=== PATIENT | female | born 1955 | race American Indian/Alaskan Native ===

== ENCOUNTER 2018-04-07 22:05 | Emergency (ER) | payer BC, OTHER ==
[2018-04-07 22:06] VITALS: BMI 39.4
[2018-04-07 22:27] VITALS: RESP 18
[2018-04-08 00:02] LABS: ALB/GLOB RATIO 1.3 (1.1-1.8); ALBUMIN 4.8 g/dL (3.0-4.8); ALT/SGPT 18 U/L (7-56); AST/SGOT 29 U/L (14-36); BASO # 0.02 K/mm3 (0.0-2.0); BASO % 0.2 % (0.0-3.0); BLOOD UREA NITROGEN 7 mg/dL (7-21); CALCIUM 9.4 mg/dL (8.4-10.5); EOS # 0.4 (0.0-0.7); GFR NON-AFRICAN AMERICAN > 60; HEMOGLOBIN 13.9 g/dL (12.0-16.0); LYMPH % 34.7 % (22.0-35.0); MEAN CELL VOLUME 93.3 fl (80.0-105.0); MEAN CORPUSCULAR HEMOGLOBIN 30.1 pg (25.0-35.0); MEAN CORPUSCULAR HGB CONC 32.3 g/dl (31.0-37.0); MEAN PLATELET VOLUME 9.1 fl (7.0-11.0); MONO # 0.6 (0.1-0.6); MONO % 4.9 % (1.0-6.0); RBC 4.62 10^6/uL (3.5-6.1); RED CELL DISTRIBUTION WIDTH 13.6 % (11.5-14.5); WHITE BLOOD COUNT 11.6 10^3/uL (4.5-11.0)
--- NOTE | 2018-04-08 00:12 | ED PDOC ---
Arrival/HPI - General Chief Complaint: High Blood Pressure Time Seen by Provider: 04/07/18 22:31 - History of Present Illness Narrative History of Present Illness (Text): 04/08/18 00:11 62-year-old female with past medical history of hypertension, presents to the emergency room for elevated blood pressure. Patient states that she checks her blood pressure daily and noticed this evening that it was elevated. States that she is compliant with her blood pressure medication losartan, however missed one dose 2 days ago. Otherwise states that she feels well. Denies any headache, dizziness, chest pain, shortness of breath, palpitations, nausea, vomiting. Patient has no other complaints. PMD Adele Past Medical History - Infectious Disease Hx of Infectious Diseases: None - Cardiac Hx Hypertension: Yes - Psychiatric Hx Substance Use: No - Anesthesia Hx Anesthesia: No Family/Social History Family/Social History: No Known Family HX Smoking Status: Never Smoked Hx Alcohol Use: Yes Hx Substance Use: No Allergies/Home Meds Allergies/Adverse Reactions: Allergies avocado Allergy (Unverified 04/07/18 22:13) VOMITING Home Medications: Home Meds Medication Instructions Recorded Confirmed Losartan [Cozaar] 100 mg PO DAILY 08/18/16 04/07/18 Review of Systems - Review of Systems Constitutional: absent: Fatigue, Fevers Respiratory: absent: SOB, Cough Cardiovascular: absent: Chest Pain, Palpitations Gastrointestinal: absent: Abdominal Pain, Nausea, Vomiting Musculoskeletal: Arthralgias. absent: Back Pain, Neck Pain Skin: absent: Rash, Pruritis, Skin Lesions Neurological: absent: Headache, Dizziness Physical Exam Vital Signs Temp Pulse Resp BP Pulse Ox 04/07/18 23:37 87 198/87 H 04/07/18 22:30 189/85 H 04/07/18 22:14 98 F 75 18 213/95 H 97 Temperature: Afebrile Blood Pressure: Hypertensive Pulse: Regular Respiratory Rate: Normal Appearance: Positive for: Well-Appearing, Non-Toxic, Comfortable Pain Distress: None Mental Status: Positive for: Alert and Oriented X 3 - Systems Exam Head: Present: Atraumatic, Normocephalic Pupils: Present: PERRL Extroacular Muscles: Present: EOMI Conjunctiva: Present: Normal Mouth: Present: Moist Mucous Membranes Neck: Present: Normal Range of Motion Respiratory/Chest: Present: Clear to Auscultation, Good Air Exchange. No: Respiratory Distress, Accessory Muscle Use Cardiovascular: Present: Regular Rate and Rhythm, Normal S1, S2. No: Murmurs Abdomen: No: Tenderness, Distention, Peritoneal Signs Back: Present: Normal Inspection Upper Extremity: Present: Normal Inspection. No: Cyanosis, Edema Lower Extremity: Present: Normal Inspection. No: Edema Neurological: Present: GCS=15, CN II-XII Intact, Speech Normal, Motor Func Grossly Intact, Normal Sensory Function Skin: Present: Warm, Dry, Normal Color. No: Rashes Psychiatric: Present: Alert, Oriented x 3, Normal Insight, Normal Concentration Medical Decision Making ED Course and Treatment: 04/08/18 00:12 Plan: -- Labs -- IV -- Urinalysis -- EKG -- CXR -- Clonidine PO -- Reassess and disposition -- environmental monitoring specialist EKG: NSR at 62 bpm, (-) acute ST changes, as read by MATI. CXR : NAD, as read by MATI Labs reviewed and wnl. On reevaluation, patient remains awake alert and oriented 3 in no acute distress, reports no headache, no dizziness, no chest pain or SOB. Results d/w the patient. Repeat BP 150/76. Advised to follow up with primary care physician in the morning without fail. Return to the emergency room at any time for any new or worsening symptoms. Patient states she fully agrees with and understands discharge instructions. States that she agrees with the plan and disposition. Verbalized and repeated discharge instructions and plan. I have given the patient opportunity to ask any additional questions. - Lab Interpretations Lab Results: Total Bilirubin 0.2 mg/dL (0.2-1.3) 04/07/18 23:33 AST 29 U/L (14-36) 04/07/18 23:33 ALT 18 U/L (7-56) 04/07/18 23:33 Alkaline Phosphatase 152 U/L (38-126) H 04/07/18 23:33 Total Protein 8.4 g/dL (5.8-8.3) H 04/07/18 23:33 Albumin 4.8 g/dL (3.0-4.8) 04/07/18 23:33 Globulin 3.6 gm/dL 04/07/18 23:33 Albumin/Globulin Ratio 1.3 (1.1-1.8) 04/07/18 23:33 - RAD Interpretation Radiology Orders: 04/07/18 23:02 CHEST PORTABLE [RAD] Stat - Medication Orders Current Medication Orders: Discontinued Medications Clonidine HCl (Catapres) 0.1 mg PO STAT STA Stop: 04/07/18 23:04 Last Admin: 04/07/18 23:37 Dose: 0.1 mg MAR Pulse and Blood Pressure Document 04/07/18 23:37 HN (Rec: 04/07/18 23:40 HN [facility] [id number]) Pulse Pulse Rate (60-90) 87 Blood Pressure Blood Pressure (100/60-150/90) 198/87 - PA / BACK SEAM STITCHER / Resident Statement MD/DO has reviewed & agrees with the documentation as recorded. Disposition/Present on Arrival - Present on Arrival Any Indicators Present on Arrival: No History of DVT/PE: No History of Uncontrolled Diabetes: No Urinary Catheter: No History of Decub. Ulcer: No History Surgical Site Infection Following: None - Disposition Have Diagnosis and Disposition been Completed?: Yes Diagnosis: Hypertension Disposition: HOME/ ROUTINE Disposition Time: 01:00 Patient Plan: Discharge Patient Problems: Current Active Problems Problem Status Onset Hypertension Acute Condition: STABLE Discharge Instructions (ExitCare): DASH Diet, High Blood Pressure (DC), Controlling Your Blood Pressure Through Lifestyle Additional Instructions: Thank you for letting us take care of you today. You were treated for hypertension. The emergency medical care you received today was directed at your acute symptoms. Return to the Emergency Department if your symptoms worsen, do not improve, or if you have any other problems. Please contact your doctor tomorrow for re-evaluation and follow up. Bring any paperwork you were given at discharge with you along with any medications you are taking to your follow up visit. Our treatment cannot replace ongoing medical care by a primary care provider (PCP) outside of the emergency department. Thank you for allowing the [facility] team to be part of your care today. If you had an X-Ray : A Radiologist will review the ED reading if any change in treatment is needed we will contact you. Forms: [employer] ([place]), WORK NOTE
[2018-04-08 00:13] LABS: TROPONIN I < 0.01 ng/mL
[2018-04-08 00:27] LABS: URINE BILIRUBIN NEGATIVE (NEGATIVE); URINE BLOOD SMALL (NEGATIVE); URINE GLUCOSE (UA) NEGATIVE (NEGATIVE); URINE LEUKOCYTE ESTERASE TRACE Leu/uL (NEGATIVE); URINE PROTEIN NEGATIVE mg/dL (<30 mg/dL); URINE UROBILINOGEN 0.2 E.U./dL (<1 E.U./dL)
[2018-04-08 00:28] LABS: URINE APPEARANCE CLEAR (CLEAR); URINE COLOR YELLOW (YELLOW)
[2018-04-08 00:30] LABS: INR 0.96; PARTIAL THROMBOPLASTIN TIME 38.1 Seconds (26.9-38.3); PROTHROMBIN TIME 10.7 SECONDS (9.4-12.5)
[2018-04-08 00:42] LABS: URINE BACTERIA RARE /hpf; URINE WBC 0 - 2 /hpf (0-6)
[2018-04-08 01:20] VITALS: BP 152/73; PULSE 69; TEMP 98.3; O2SAT 98
--- NOTE | 2018-04-08 09:15 | CARD ---
APPROVED REPORT Date of service: 04/07/2018 EKG Measurement Heart [id number] TN 152P61 [id number] <Conclusion> Normal sinus rhythm Normal ECG
--- NOTE | 2018-04-08 10:18 | RAD ---
Date of service: 04/07/2018 HISTORY: high bp COMPARISON: No prior. FINDINGS: LUNGS: No active pulmonary disease. PLEURA: No significant pleural effusion identified, no pneumothorax apparent. CARDIOVASCULAR: No aortic atherosclerotic calcification present. Normal cardiac size. No pulmonary vascular congestion. OSSEOUS STRUCTURES: No significant abnormalities. VISUALIZED UPPER ABDOMEN: Normal. OTHER FINDINGS: None. IMPRESSION: Suboptimal portable study. No evidence of acute pulmonary disease.
== END 2018-04-08 01:19 | disposition home or self-care (01) ==
LOC: ED 22:05
DX: I10 Essential (primary) hypertension (principal)

== ENCOUNTER 2018-04-21 12:36 | Observation (INO) | payer BC, OTHER ==
[2018-04-21 12:36] VITALS: BMI 39.4
[2018-04-21 14:02] LABS: BASO # 0.03 K/mm3 (0.0-2.0); BASO % 0.2 % (0.0-3.0); EOS # 0.3 (0.0-0.7); EOS % 2.6 % (1.5-5.0); HEMOGLOBIN 13.6 g/dL (12.0-16.0); LYMPH # 4.9 (1.2-3.4); LYMPH % 38.3 % (22.0-35.0); MEAN CELL VOLUME 92.9 fl (80.0-105.0); MEAN CORPUSCULAR HEMOGLOBIN 30.1 pg (25.0-35.0); MEAN CORPUSCULAR HGB CONC 32.4 g/dl (31.0-37.0); MEAN PLATELET VOLUME 9.3 fl (7.0-11.0); MONO # 0.5 (0.1-0.6); RBC 4.52 10^6/uL (3.5-6.1); RED CELL DISTRIBUTION WIDTH 13.6 % (11.5-14.5); WHITE BLOOD COUNT 12.7 10^3/uL (4.5-11.0)
[2018-04-21 14:12] LABS: LIPASE 84 U/L (23-300)
[2018-04-21 14:15] LABS: INR 1.01; PARTIAL THROMBOPLASTIN TIME 39.4 Seconds (26.9-38.3); PROTHROMBIN TIME 11.2 SECONDS (9.4-12.5)
[2018-04-21 14:17] LABS: ALB/GLOB RATIO 1.3 (1.1-1.8); ALBUMIN 4.9 g/dL (3.0-4.8); ALT/SGPT 12 U/L (7-56); AST/SGOT 23 U/L (14-36); BLOOD UREA NITROGEN 16 mg/dL (7-21); GFR NON-AFRICAN AMERICAN > 60
[2018-04-21 14:18] LABS: URINE BILIRUBIN NEGATIVE (NEGATIVE); URINE BLOOD NEGATIVE (NEGATIVE); URINE GLUCOSE (UA) NEGATIVE (NEGATIVE); URINE LEUKOCYTE ESTERASE NEGATIVE Leu/uL (NEGATIVE); URINE PROTEIN NEGATIVE mg/dL (<30 mg/dL); URINE UROBILINOGEN 0.2 E.U./dL (<1 E.U./dL)
[2018-04-21 14:19] LABS: URINE APPEARANCE CLEAR (CLEAR); URINE COLOR YELLOW (YELLOW)
[2018-04-21] MEDS ORDERED: Oxycodone/Acetaminophen 5/325 mg Tab PO STA (14:21)
[2018-04-21 14:22] LABS: TROPONIN I < 0.01 ng/mL
--- NOTE | 2018-04-21 14:30 | RAD ---
Date of service: 04/21/2018 HISTORY: chest pain COMPARISON: 04/07/2018 FINDINGS: LUNGS: No active pulmonary disease. PLEURA: No significant pleural effusion identified, no pneumothorax apparent. CARDIOVASCULAR: No aortic atherosclerotic calcification present. Normal cardiac size. No pulmonary vascular congestion. OSSEOUS STRUCTURES: No significant abnormalities. VISUALIZED UPPER ABDOMEN: Normal. OTHER FINDINGS: None. IMPRESSION: No active disease.
--- NOTE | 2018-04-21 14:53 | CT ---
Date of service: 04/21/2018 PROCEDURE: CT HEAD WITHOUT CONTRAST. HISTORY: fall COMPARISON: None available. TECHNIQUE: Axial computed tomography images were obtained through the head/brain without intravenous contrast. Radiation dose: Total exam DLP = 911.29 mGy-cm. This CT exam was performed using one or more of the following dose reduction techniques: Automated exposure control, adjustment of the mA and/or kV according to patient size, and/or use of iterative reconstruction technique. FINDINGS: HEMORRHAGE: No intracranial hemorrhage. BRAIN: No mass effect or edema. No atrophy or chronic microvascular ischemic changes. VENTRICLES: Unremarkable. No hydrocephalus. CALVARIUM: Unremarkable. PARANASAL SINUSES: Unremarkable as visualized. No significant inflammatory changes. MASTOID AIR CELLS: Unremarkable as visualized. No inflammatory changes. OTHER FINDINGS: None. IMPRESSION: No acute intracranial findings
--- NOTE | 2018-04-21 15:32 | RAD ---
Date of service: 04/21/2018 PROCEDURE: Pelvis and right hip HISTORY: right hip pain COMPARISON: TECHNIQUE: Three views FINDINGS: There are no significant degenerative changes. No evidence of fracture. Mild hypertrophic changes are seen in the symphysis pubis IMPRESSION: Negative study
--- NOTE | 2018-04-21 15:33 | RAD ---
Date of service: 04/21/2018 PROCEDURE: Right Wrist Radiographs. HISTORY: wrist pain s/p fall COMPARISON: None. FINDINGS: BONES: Normal. No fracture. JOINTS: Normal. No dislocation. SOFT TISSUES: Normal. OTHER FINDINGS: None. IMPRESSION: Normal right wrist radiographs.
--- NOTE | 2018-04-21 15:33 | RAD ---
Date of service: 04/21/2018 PROCEDURE: Radiographs of the Chest and Right Ribs. HISTORY: right lateral and anterior rib pain s/p fall COMPARISON: None available. TECHNIQUE: Frontal radiograph of the chest and multiple oblique radiographs of the right ribs were obtained. FINDINGS: RIGHT RIBS: No fracture or focal lesion visualized. LUNGS: Clear. PLEURA: No pneumothorax or pleural fluid. CARDIOVASCULAR: Normal cardiac size. No pulmonary vascular congestion. No aortic atherosclerotic calcification present OTHER FINDINGS: None. IMPRESSION: Unremarkable radiographs of the chest and right ribs. No right rib fracture.
--- NOTE | 2018-04-21 16:09 | CARD ---
APPROVED REPORT Date of service: 04/21/2018 EKG Measurement Heart [id number] CT [id number] <Conclusion> Normal sinus rhythm Normal ECG
--- NOTE | 2018-04-21 17:16 | ED PDOC ---
Arrival/HPI - General Chief Complaint: Trauma Time Seen by Provider: 04/21/18 13:11 Historian: Patient - History of Present Illness Narrative History of Present Illness (Text): 04/21/18 17:27 62-year-old female with a history of hypertension presents today with anterior chest pain, right hip pain, right wrist pain, and right lateral rib pain status post slip and fall. Patient states she slipped and fell landing on her right si de. Patient states she thinks she may have broken her fall with her right hand/wrist. Patient is unsure if she hit her head. She denies neck pain. Patient denies numbness weakness or tingling in the extremity. She is complaining of right hip pain. She denies abdominal pain. 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 Patient states she then developed pain to the right lateral ribs. pt c/o occasional sob. no n/v/d/c. Past Medical History - Provider Review Nursing Documentation Reviewed: Yes - Travel History Have you recently traveled outside [place] w/in the past 3 mons?: No - Infectious Disease Hx of Infectious Diseases: None - Cardiac Hx Hypertension: Yes - Psychiatric Hx Substance Use: No - Anesthesia Hx Anesthesia: No Hx Anesthesia Reactions: No Hx Malignant Hyperthermia: No Family/Social History - Physician Review Nursing Documentation Reviewed: Yes Family/Social History: Unknown Family HX Smoking Status: Never Smoked Hx Alcohol Use: Yes Hx Substance Use: No Allergies/Home Meds Allergies/Adverse Reactions: Allergies avocado Allergy (Unverified 04/21/18 15:21) VOMITING Pt also reports "breaking out." Home Medications: Home Meds Medication Instructions Recorded Confirmed Losartan [Cozaar] 100 mg PO DAILY 08/18/16 04/21/18 amLODIPine [Norvasc] 5 mg PO DAILY 04/21/18 04/21/18 Review of Systems - Review of Systems Constitutional: absent: Fatigue, Fevers ENT: absent: Sore Throat, Sinus Congestion Respiratory: absent: Cough Cardiovascular: Chest Pain. absent: Palpitations Gastrointestinal: absent: Abdominal Pain, Constipation, Diarrhea, Nausea, Vomiting Musculoskeletal: Arthralgias. absent: Back Pain, Neck Pain Skin: absent: Rash, Pruritis Neurological: absent: Headache Physical Exam Vital Signs Temp Pulse Resp BP Pulse Ox 04/21/18 16:30 98.1 F 68 18 158/79 H 100 04/21/18 13:11 98.2 F 73 18 130/65 100 Medical Decision Making ED Course and Treatment: 04/21/18 17:01 62-year-old female presents today with right wrist pain and right hip pain status post fall. After the fall the patient developed chest pain. CBC within normal limits CMP within normal limits Troponin within normal limits EKG shows normal sinus rhythm at 73 bpm normal axis normal intervals no ST elevations CAT scan of the head:FINDINGS: HEMORRHAGE: No intracranial hemorrhage. BRAIN: No mass effect or edema. No atrophy or chronic microvascular ischemic changes. VENTRICLES: Unremarkable. No hydrocephalus. CALVARIUM: Unremarkable. PARANASAL SINUSES: Unremarkable as visualized. No significant inflammatory changes. MASTOID AIR CELLS: Unremarkable as visualized. No inflammatory changes. OTHER FINDINGS: None. IMPRESSION: No acute intracranial findings right wrist: no fracture right hip; no fracture right ribs; no fracture pt given percocet for pain pt reassessment; pt with improved pain to the right lateral ribs, but still c/o pressure sensation to anterior chest. asa given po 04/21/18 17:[address] moser; will admit observational status to remote tele, cp r/o acs impression; chest pain, rib contusion, wrist pain, hip pain admit observational status to remote tele. Reassessment Condition: Re-examined, Improving,but remains with symptoms - Lab Interpretations Lab Results: PT 11.2 SECONDS (9.4-12.5) 04/21/18 13:54 INR 1.01 04/21/18 13:54 APTT 39.4 Seconds (26.9-38.3) H 04/21/18 13:54 Troponin I < 0.01 ng/mL 04/21/18 13:54 Total Bilirubin 0.3 mg/dL (0.2-1.3) 04/21/18 13:54 AST 23 U/L (14-36) 04/21/18 13:54 ALT 12 U/L (7-56) 04/21/18 13:54 Alkaline Phosphatase 145 U/L (38-126) H 04/21/18 13:54 Total Protein 8.6 g/dL (5.8-8.3) H 04/21/18 13:54 Albumin 4.9 g/dL (3.0-4.8) H 04/21/18 13:54 Globulin 3.7 gm/dL 04/21/18 13:54 Albumin/Globulin Ratio 1.3 (1.1-1.8) 04/21/18 13:54 Lipase 84 U/L (23-300) 04/21/18 13:54 Urine Color Yellow (YELLOW) 04/21/18 14:10 Urine Appearance Clear (CLEAR) 04/21/18 14:10 Urine pH 6.0 (4.7-8.0) 04/21/18 14:10 Ur Specific [place] 1.025 (1.005-1.035) 04/21/18 14:10 Urine Protein Negative mg/dL (<30 mg/dL) 04/21/18 14:10 Urine Glucose (UA) Negative mg/dL (NEGATIVE) 04/21/18 14:10 Urine Ketones Negative mg/dL (NEGATIVE) 04/21/18 14:10 Urine Blood Negative (NEGATIVE) 04/21/18 14:10 Urine Nitrate Negative (NEGATIVE) 04/21/18 14:10 Urine Bilirubin Negative (NEGATIVE) 04/21/18 14:10 Urine Urobilinogen 0.2 E.U./dL (<1 E.U./dL) 04/21/18 14:10 Ur Leukocyte Esterase Negative [place]/uL (NEGATIVE) 04/21/18 14:10 - RAD Interpretation Radiology Orders: 04/21/18 13:38 CHEST PORTABLE [RAD] Stat 04/21/18 14:16 HEAD W/O CONTRAST [CT] Stat 04/21/18 14:18 Hip Right [HIP MIN 2V W/ PELVIS RT] [RAD] Stat RIBS RIGHT & PA CHEST [RAD] Stat WRIST, RIGHT 3 VIEWS [RAD] Stat - Medication Orders Current Medication Orders: Discontinued Medications Oxycodone/Acetaminophen (Percocet 5/325 Mg Tab) 1 tab PO STAT STA Stop: 04/21/18 14:22 Last Admin: 04/21/18 15:26 Dose: 1 tab MAR Pain Assessment Document 04/21/18 15:26 [place] (Rec: 04/21/18 15:26 LA [facility] [id number]) Pain Reassessment Is this a pain reassessment? No Sleep Is patient sleeping during reassessment? No Presence of Pain Presence of Pain Yes Pain Scale Used Protocol: PSCALES Pain Scale Used Numeric Location Left, Right or Bilateral Right Pain Location Body Site Leg Disposition/Present on Arrival - Present on Arrival Any Indicators Present on Arrival: No History of DVT/PE: No History of Uncontrolled Diabetes: No Urinary Catheter: No History of Decub. Ulcer: No History Surgical Site Infection Following: None - Disposition Have Diagnosis and Disposition been Completed?: Yes Diagnosis: Chest pain, Rib contusion, Hip pain, Wrist pain Disposition: HOSPITALIZED Disposition Time: 17:00 Patient Plan: Observation Condition: FAIR
[2018-04-21] MEDS ORDERED: Oxycodone/Acetaminophen 2.5/325 mg Tab PO PRN (18:12)
--- NOTE | 2018-04-21 18:59 | CP.PCM.HP ---
<Ilan Núñez - Last Filed: 04/22/18 11:55> History of Present Illness - History of Present Illness History of Present Illness: Resident History & Physical for Hospitalist Service Patient is a 62 year old female with past medical history of hypertension presenting with chief complaint of right sided rib pain radiating to the back which began today after she slipped and fell on an icy sidewalk. Patient states that she landed on her right side and denies trauma to any other regions or loss of consciousness. Patient's fall was witnessed by a family member who subs equently brought her to the ED. Patient also admits to mild intermittent chest discomfort located on her right anterior chest wall. Pain is localized and aggravated by positional changes. Denies fevers, chills, nausea, vomiting, shortness of breath, abdominal pain, diarrhea, dysuria. PMH: hypertension PSH: denies SHx: denies alcohol, tobacco, illicit drug use Allergies: avocado PMD: none Present on Admission - Present on Admission Any Indicators Present on Admission: No Review of Systems - Review of Systems All systems: reviewed and no additional remarkable complaints except (as stated in HPI) Past Patient History - Infectious Disease Hx of Infectious Diseases: None - Past Social History Smoking Status: Never Smoked - CARDIAC Hx Hypertension: Yes - PSYCHIATRIC Hx Substance Use: No - ANESTHESIA Hx Anesthesia: No Hx Anesthesia Reactions: No Hx Malignant Hyperthermia: No Meds Allergies/Adverse Reactions: Allergies Allergy/AdvReac Type Severity Reaction Status Date / Time avocado Allergy VOMITING Unverified 04/21/18 15:21 Physical Exam - Constitutional Appears: Non-toxic, No Acute Distress - Head Exam Head Exam: ATRAUMATIC, NORMOCEPHALIC - Eye Exam Eye Exam: EOMI, Normal appearance, PERRL - ENT Exam ENT Exam: Mucous Membranes Moist - Neck Exam Neck exam: Positive for: Full Rom. Negative for: Lymphadenopathy - Respiratory Exam Respiratory Exam: Chest Wall Tenderness, Clear to Auscultation Bilateral, NORMAL BREATHING PATTERN. absent: Accessory Muscle Use, Rales, Rhonchi, Wheezes, Respiratory Distress - Cardiovascular Exam Cardiovascular Exam: RRR, +S1, +S2 - GI/Abdominal Exam GI & Abdominal Exam: Normal Bowel Sounds, Soft. absent: Distended, Firm, Guarding, Rebound, Rigid, Tenderness - Extremities Exam Extremities exam: Positive for: normal capillary refill, pedal pulses present. Negative for: calf tenderness, normal inspection - Back Exam Back exam: muscle spasm. absent: paraspinal tenderness, rash noted, vertebral tenderness - Neurological Exam Neurological exam: Alert, CN II-XII Intact, Oriented x3 - Psychiatric Exam Psychiatric exam: Normal Affect, Normal Mood - Skin Skin Exam: Dry, Intact, Normal Color, Warm Results - Vital Signs Recent Vital Signs: Last Vital Signs Temp 98.1 F 04/21/18 18:30 Pulse 67 04/21/18 18:30 Resp 18 04/21/18 18:30 BP 147/74 04/21/18 18:30 Pulse Ox 98 04/21/18 18:30 - Labs Result Diagrams: 04/22/18 05:20 04/22/18 05:20 Labs: Laboratory Results - last 24 hr 04/21/18 04/21/18 04/21/18 13:54 13:54 13:54 WBC 12.7 H RBC 4.52 Hgb 13.6 Hct 42.0 MCV 92.9 MCH 30.1 MCHC 32.4 RDW 13.6 Plt Count 381 MPV 9.3 Neut % (Auto) 54.9 Lymph % (Auto) 38.3 H Cassia % (Auto) 4.0 Eos % (Auto) 2.6 Baso % (Auto) 0.2 Lymph # (Auto) 4.9 H Cassia # (Auto) 0.5 Eos # (Auto) 0.3 Baso # (Auto) 0.03 Absolute Neuts (auto) 6.98 H PT 11.2 INR 1.01 APTT 39.4 H Sodium 140 Potassium 3.9 Chloride 99 Carbon Dioxide 30 Anion Gap 15 BUN 16 Creatinine 0.9 Est GFR ( Amer) > 60 Est GFR (Non-Af Amer) > 60 Random Glucose 108 Calcium 10.0 Total Bilirubin 0.3 AST 23 ALT 12 Alkaline Phosphatase 145 H Lactate Dehydrogenase 649 Total Creatine Kinase 113 Troponin I < 0.01 Total Protein 8.6 H Albumin 4.9 H Globulin 3.7 Albumin/Globulin Ratio 1.3 Lipase 84 Urine Color Urine Appearance Urine pH Ur Specific [place] Urine Protein Urine Glucose (UA) Urine Ketones Urine Blood Urine Nitrate Urine Bilirubin Urine Urobilinogen Ur Leukocyte Esterase 04/21/18 14:10 WBC RBC Hgb Hct MCV MCH MCHC RDW Plt Count MPV Neut % (Auto) Lymph % (Auto) Cassia % (Auto) Eos % (Auto) Baso % (Auto) Lymph # (Auto) Cassia # (Auto) Eos # (Auto) Baso # (Auto) Absolute Neuts (auto) PT INR APTT Sodium Potassium Chloride Carbon Dioxide Anion Gap BUN Creatinine Est GFR ( Amer) Est GFR (Non-Af Amer) Random Glucose Calcium Total Bilirubin AST ALT Alkaline Phosphatase Lactate Dehydrogenase Total Creatine Kinase Troponin I Total Protein Albumin Globulin Albumin/Globulin Ratio Lipase Urine Color Yellow Urine Appearance Clear Urine pH 6.0 Ur Specific [place] 1.025 Urine Protein Negative Urine Glucose (UA) Negative Urine Ketones Negative Urine Blood Negative Urine Nitrate Negative Urine Bilirubin Negative Urine Urobilinogen 0.2 Ur Leukocyte Esterase Negative Assessment & Plan - Assessment and Plan (Free Text) Assessment: Patient is a 62 year old female with past medical history of hypertension presenting s/p fall. Plan: s/p fall - Hip/pelvis, ribs, wrist x-ray imaging negative for fracture - Head CT negative for acute intracranial findings - Percocet 1 tab Q6H PRN for pain - Flexeril 5 mg PO Q8H PRN - PT eval Atypical chest pain - Troponin negx1 - EKG shows normal sinus rhythm - Troponins Q6H - Hgba1c - ECHO - Cardiology consulted. Appreciate recs. - Aspirin 81 mg PO daily Hypertension - continue home Norvasc 5 mg PO daily, Losartan 100 mg PO daily PPX - Lovenox, SCDs Case discussed with Dr. Konstantin Núñez PGY-1 <Maya Pryor R - Last Filed: 04/22/18 16:47> Results - Vital Signs Recent Vital Signs: Last Vital Signs Temp 97.3 F L 04/22/18 08:08 Pulse 54 L 04/22/18 14:00 Resp 20 04/22/18 08:08 BP 166/88 H 04/22/18 09:12 Pulse Ox 99 04/22/18 08:08 - Labs Result Diagrams: 04/22/18 05:20 04/22/18 05:20 Labs: Laboratory Results - last 24 hr 04/21/18 04/21/18 04/21/18 13:54 13:54 13:54 WBC RBC Hgb Hct MCV MCH MCHC RDW Plt Count MPV Neut % (Auto) Lymph % (Auto) Cassia % (Auto) Eos % (Auto) Baso % (Auto) Lymph # (Auto) Cassia # (Auto) Eos # (Auto) Baso # (Auto) Absolute Neuts (auto) D-Dimer, Quantitative 244 H Sodium Potassium Chloride Carbon Dioxide Anion Gap BUN Creatinine Est GFR ( Amer) Est GFR (Non-Af Amer) Random Glucose Hemoglobin A1c 6.3 Calcium Phosphorus Magnesium Total Bilirubin AST ALT Alkaline Phosphatase Troponin I Total Protein Albumin Globulin Albumin/Globulin Ratio Triglycerides 234 H Cholesterol 215 H LDL Cholesterol Direct 104 HDL Cholesterol 52 Free T4 TSH 3rd Generation 04/21/18 04/21/18 04/22/18 13:54 20:00 01:15 WBC RBC Hgb Hct MCV MCH MCHC RDW Plt Count MPV Neut % (Auto) Lymph % (Auto) Cassia % (Auto) Eos % (Auto) Baso % (Auto) Lymph # (Auto) Cassia # (Auto) Eos # (Auto) Baso # (Auto) Absolute Neuts (auto) D-Dimer, Quantitative Sodium Potassium Chloride Carbon Dioxide Anion Gap BUN Creatinine Est GFR ( Amer) Est GFR (Non-Af Amer) Random Glucose Hemoglobin A1c Calcium Phosphorus Magnesium Total Bilirubin AST ALT Alkaline Phosphatase Troponin I < 0.01 < 0.01 Total Protein Albumin Globulin Albumin/Globulin Ratio Triglycerides Cholesterol LDL Cholesterol Direct HDL Cholesterol Free T4 1.05 TSH 3rd Generation 1.68 04/22/18 04/22/18 05:20 05:20 WBC 8.5 D RBC 4.54 Hgb 13.7 Hct 42.4 MCV 93.4 MCH 30.2 MCHC 32.3 RDW 13.6 Plt Count 296 MPV 9.0 Neut % (Auto) 41.6 L Lymph % (Auto) 47.3 H Cassia % (Auto) 6.1 H Eos % (Auto) 4.8 Baso % (Auto) 0.2 Lymph # (Auto) 4.0 H Cassia # (Auto) 0.5 Eos # (Auto) 0.4 Baso # (Auto) 0.02 Absolute Neuts (auto) 3.51 D-Dimer, Quantitative Sodium 138 Potassium 3.8 Chloride 104 Carbon Dioxide 27 Anion Gap 11 BUN 13 Creatinine 0.7 Est GFR ( Amer) > 60 Est GFR (Non-Af Amer) > 60 Random Glucose 100 Hemoglobin A1c Calcium 8.9 Phosphorus 3.5 Magnesium 2.2 Total Bilirubin 0.5 AST 25 ALT 10 Alkaline Phosphatase 117 Troponin I Total Protein 7.0 Albumin 4.0 Globulin 3.1 Albumin/Globulin Ratio 1.3 Triglycerides Cholesterol LDL Cholesterol Direct HDL Cholesterol Free T4 TSH 3rd Generation Attending/Attestation - Attestation I have personally seen and examined this patient.: Yes I have fully participated in the care of the patient.: Yes I have reviewed all pertinent clinical information: Yes Notes (Text): Patient seen and examined by me with resident at 5:35PM on 04/21/18 in the emergency room. Case including HPI, physical exam, and assessment and plan discussed with resident. Agree with above with following additions/corrections. Patient is a 62-year-old female past medical history significant for hypertension and previous fall that presented to the emergency room with chest pain status post a fall. Patient states that her son was at the hospital getting blood work and an MRI done. Patient left her apartment building to pick her son up. She slipped on "black ice" on the sidewalk. She fell on her right side. She states someone helped her get up. She then got her car to come to the hospital to pick her son up. She states at this time she started to have anterior chest pain more right sided that was radiating to her right back. He states that it felt heavy and was a "shooting" pain. Patient states that it was difficult for her to take a deep breath secondary to the pain. The pain is reproducible. Patient is denying any left-sided chest pain. No associated diaphoresis. No nausea, vomiting, or abdominal pain. Patient also complains of right sacral and hip pain from the fall. Patient states that the medication she received in the emergency room seemed to help. Patient denies any palpitations or shortness of breath. No headaches or dizziness. No fevers or chills. No change in vision. No lightheadedness. Patient is unsure if she had her head. No dysuria. No diarrhea or constipation. 12 point review of systems reviewed by me. Please see above HPI. All other systems negative. Medications at home: Norvasc 5mg daily, Losartan 100mg daily Family history. Mother and had a history of hypertension. Father passsed away from unknown causes. Physical exam: General: Awake and alert lying in bed in no acute distress HEENT: Normocephalic, atraumatic. Extraocular muscles intact, pupils equal and reactive, no scleral icterus. Oropharynx is pink moist. No pharyngeal erythema or exudate appreciated. Neck is supple. Hearing grossly intact. Ears and nose externally unremarkable. Cardiovascular: Regular rhythm. Normal S1 and S2. No murmurs, rubs, or gallops appreciated Pulmonary: Normal respiratory effort. No rhonchi, rales, or wheezing apprec iated. Gastrointestinal: Soft, nondistended. Nontender. Positive bowel sounds all 4 quadrants. No guarding. Musculoskeletal: Moves all extremities. No calf tenderness. No edema appreciated. Central nervous system: AAOx3. CN 2-12 grossly intact. 5/5 muscle strength all extremities. Dermatologic: Skin warm and dry. Assessment and plan: Patient is a 62-year-old female past medical history signi ficant for hypertension and previous fall that presented to the emergency room with chest pain status post a fall. Patient states that her son was at the hospital getting blood work and an MRI done. 1. Chest pain. Atypical. Reproducible. Will rule out ACS. Placed on ASA. First troponin within normal limits. Follow up serial troponins. Follow up d-dimer. Follow up 2d echo. Cardiology consulted, follow up recommendations. 2. Fall. Gait instability. Head CT per radiology showed no acute intracranial findings. Right hip and pelvic x-ray per radiologist showed negative study. Chest and right rib x-ray per radiologist showed unremarkable radiographs of the chest and right ribs, no right hip fracture. Right wrist x-ray showed normal right wrist radiographs. Physical therapy consulted. Placed on pain medications and Flexeril as needed. 3. Hypertension. Continue home Norvasc and Cozaar. Case was discussed in detail with patient regarding current diagnosis and treatment plan. All questions answered. 4. DVT prophylaxis. SCDs and early ambulation 5. Patient is a full code. Case was discussed in detail with the patient regarding current diagnosis and treatment plan. All questions answered.
[2018-04-21 19:45] LABS: HDL CHOLESTEROL 52 mg/dL (29-60)
[2018-04-21 19:56] LABS: LDL CHOLESTEROL 104 mg/dL (0-129)
[2018-04-21 20:02] LABS: FREE T4 1.05 ng/dL (0.78-2.19)
[2018-04-22 05:56] LABS: BASO # 0.02 K/mm3 (0.0-2.0); BASO % 0.2 % (0.0-3.0); EOS # 0.4 (0.0-0.7); EOS % 4.8 % (1.5-5.0); HEMOGLOBIN 13.7 g/dL (12.0-16.0); LYMPH % 47.3 % (22.0-35.0); MEAN CELL VOLUME 93.4 fl (80.0-105.0); MEAN CORPUSCULAR HEMOGLOBIN 30.2 pg (25.0-35.0); MEAN CORPUSCULAR HGB CONC 32.3 g/dl (31.0-37.0); MONO # 0.5 (0.1-0.6); MONO % 6.1 % (1.0-6.0); RBC 4.54 10^6/uL (3.5-6.1); RED CELL DISTRIBUTION WIDTH 13.6 % (11.5-14.5); WHITE BLOOD COUNT 8.5 10^3/uL (4.5-11.0)
[2018-04-22 06:40] LABS: ALB/GLOB RATIO 1.3 (1.1-1.8); ALT/SGPT 10 U/L (7-56); AST/SGOT 25 U/L (14-36); BLOOD UREA NITROGEN 13 mg/dL (7-21); CALCIUM 8.9 mg/dL (8.4-10.5); GFR NON-AFRICAN AMERICAN > 60
--- NOTE | 2018-04-22 07:23 | CP.PCM.PN ---
<Ilan Núñez L - Last Filed: 04/22/18 20:26> Subjective - Date & Time of Evaluation Date of Evaluation: 04/22/18 Time of Evaluation: 07:23 - Subjective Subjective: Resident Progress Note for Hospitalist Service Patient examined at bedside. No acute events overnight. Patient reports improvement in her back pain and muscle spasms. Patient also reports mild abdominal discomfort. Denies fevers, chills, nausea, vomiting, chest pain, shortness of breath, diarrhea, dysuria. Objective - Vital Signs/Intake and Output Vital Signs (last 24 hours): Temp Pulse Resp BP Pulse Ox 98.1 F 58 L 18 147/74 98 04/21/18 18:30 04/22/18 05:45 04/21/18 19:31 04/21/18 18:30 04/21/18 18:30 - Medications Medications: Current Medications Acetaminophen (Tylenol 325mg Tab) 650 mg PO Q6H PRN PRN Reason: Pain, moderate (4-7) Amlodipine Besylate (Norvasc) 5 mg PO DAILY TORSTEN Aspirin (Ecotrin) 81 mg PO DAILY TORSTEN Cyclobenzaprine HCl (Flexeril) 5 mg PO Q8H PRN PRN Reason: Muscle spasm Losartan Potassium (Cozaar) 100 mg PO DAILY TORSTEN Oxycodone/Acetaminophen (Percocet 2.5/325 Mg Tab) 1 tab PO Q6H PRN PRN Reason: Pain, severe (8-10) - Labs Labs: 04/22/18 05:20 04/22/18 05:20 PT 11.2 SECONDS (9.4-12.5) 04/21/18 13:54 INR 1.01 04/21/18 13:54 APTT 39.4 Seconds (26.9-38.3) H 04/21/18 13:54 - Additional Findings Additional findings: - Constitutional Appears: Non-toxic, No Acute Distress - Head Exam Head Exam: ATRAUMATIC, NORMOCEPHALIC - Eye Exam Eye Exam: EOMI, Normal appearance - ENT Exam ENT Exam: Mucous Membranes Moist - Neck Exam Neck exam: Positive for: Full Rom. Negative for: Lymphadenopathy - Respiratory Exam Respiratory Exam: Chest Wall Tenderness, Clear to Auscultation Bilateral, NORMAL BREATHING PATTERN. absent: Accessory Muscle Use, Rales, Rhonchi, Wheezes, Respiratory Distress - Cardiovascular Exam Cardiovascular Exam: RRR, +S1, +S2 - GI/Abdominal Exam GI & Abdominal Exam: Normal Bowel Sounds, Soft. absent: Distended, Firm, Guarding, Rebound, Rigid, Tenderness - Extremities Exam Extremities exam: Positive for: normal capillary refill, pedal pulses present. Negative for: calf tenderness, normal inspection - Back Exam Back exam: absent: paraspinal tenderness, rash noted, vertebral tenderness - Neurological Exam Neurological exam: Alert, CN II-XII Intact, Oriented x3 - Skin Skin Exam: Dry, Intact, Normal Color, Warm Assessment and Plan - Assessment and Plan (Free Text) Assessment: Patient is a 62 year old female with past medical history of hypertension presenting s/p fall. Plan: s/p fall - Hip/pelvis, ribs, wrist x-ray imaging negative for fracture - Head CT negative for acute intracranial findings - Percocet 1 tab Q6H PRN for pain - Flexeril 5 mg PO Q8H PRN - PT eval Atypical chest pain - Troponin negx3 - EKG shows normal sinus rhythm - Hgba1c 6.3 - ECHO shows EF 58%, normal LV systolic function, mild pulm hypertension - Cardiology consulted. Appreciate recs. - Aspirin 81 mg PO daily Hypertension - continue home Norvasc 5 mg PO daily, Losartan 100 mg PO daily PPX - Lovenox, SCDs Case discussed with Dr. Konstantin Núñez PGY-1 <Maya Pryor R - Last Filed: 04/23/18 15:43> Objective - Vital Signs/Intake and Output Vital Signs (last 24 hours): Temp Pulse Resp BP Pulse Ox 97.8 F 70 18 143/77 98 04/23/18 06:00 04/23/18 10:01 04/23/18 06:00 04/23/18 10:01 04/23/18 06:00 Intake and Output: 04/23/18 04/23/18 06:59 18:59 Intake Total 240 Balance 240 - Labs Labs: 04/23/18 08:19 04/23/18 08:19 PT 11.2 SECONDS (9.4-12.5) 04/21/18 13:54 INR 1.01 04/21/18 13:54 APTT 39.4 Seconds (26.9-38.3) H 04/21/18 13:54 Attending/Attestation - Attestation I have personally seen and examined this patient.: Yes I have fully participated in the care of the patient.: Yes I have reviewed all pertinent clinical information, including history, physical exam and plan: Yes Notes (Text): Patient seen and examined by me with resident at 9:40AM on 04/22/18. Case including HPI, physical exam, and assessment and plan discussed with resident. Agree with above with following additions/corrections. Patient is a 62-year-old female past medical history significant for hypertension and previous fall that presented to the emergency room with chest pain status post a fall. Patient states she is feeling a little better today. Still with reproducible right sided chest/back/rib pain. Sacral pain improved. Patient has ambulated to the restroom. Patient denies any palpitations or shortness of breath. No headaches or dizziness. No fevers or chills. No change in vision. No lightheadedness. No dysuria. No diarrhea or constipation. Physical exam: General: Awake and alert lying in bed in no acute distress HEENT: Normocephalic, atraumatic. Extraocular muscles intact, pupils equal and reactive, no scleral icterus. Oropharynx is pink moist. No pharyngeal erythema or exudate appreciated. Neck is supple. Cardiovascular: Regular rhythm. Normal S1 and S2. No murmurs, rubs, or gallops appreciated Pulmonary: Normal respiratory effort. No rhonchi, rales, or wheezing a ppreciated. Gastrointestinal: Soft, nondistended. Nontender. Positive bowel sounds all 4 quadrants. No guarding. Musculoskeletal: Moves all extremities. No calf tenderness. No edema appreciated. Positive anterior right sided chest wall tenderness. Central nervous system: AAOx3. CN 2-12 grossly intact. 5/5 muscle strength all extremities. Dermatologic: Skin warm and dry. Assessment and plan: Patient is a 62-year-old female past medical history significant for hypertension and previous fall that presented to the emergency room with chest pain status post a fall. Patient states that her son was at the hospital getting blood work and an MRI done. 1. Chest pain. Atypical. Reproducible. ACS ruled out. Pending 2D echo read. Continue ASA. Troponins within normal limits. D-dimer within normal limits. Cardiology consulted following, recommendations appreciated. 2. Fall. Gait instability. Pending PT evaluation. Continue with pain management. Head CT per radiology showed no acute intracranial findings. Right hip and pelvic x-ray per radiologist showed negative study. Chest and right rib x-ray per radiologist showed unremarkable radiographs of the chest and right ribs, no right hip fracture. Right wrist x-ray showed normal right wrist radiographs. 3. Hypertension. Continue home Norvasc and Cozaar. 4. DVT prophylaxis. SCDs and early ambulation 5. Patient is a full code. Case was discussed in detail with the patient regarding current diagnosis and treatment plan. All questions answered.
--- NOTE | 2018-04-22 12:55 | CON ---
DATE OF CONSULTATION: 04/22/2018 REASON FOR CONSULTATION: Fall. HISTORY OF PRESENT ILLNESS: The patient is a 62 years old [employer] employee, who has a history of hypertension, who according to her sustained a fall on an icy surface, after that she started to experience left-sided chest pain. The patient does not recall the details of the fall because it was very fast; however, she denies any loss of consciousness, headache, or head injury. The patient is unaware of any prior cardiac history. SOCIAL HISTORY: Nonsmoker, nondrinker. MEDICATIONS: Cozaar 100 mg once a day, aspirin 81 mg once a day, Flexeril 5 mg every 8 hours, Norvasc 5 mg once a day, Percocet 1 tablet every 6 hours. REVIEW OF SYSTEMS: No loss of consciousness. No headache. No blurry vision. No nausea or vomiting. PHYSICAL EXAMINATION: GENERAL: The patient is a middle-aged female, who does not appear to be in acute distress. VITAL SIGNS: Blood pressure 166/88, heart rate 60, temperature 97.3, respirations 20. HEENT: Normocephalic. CHEST: Clear. HEART: S1 and S2 are regular. ABDOMEN: Soft. EXTREMITIES: No edema. LABORATORY DATA: Hemoglobin and hematocrit are 13.7 and 42.4, white count and platelet count are within normal limits. The SMA-7 is entirely within normal limits. Three sets of troponins are within normal limits. D-dimer is slightly elevated to 144. PT and INR are within normal limits. EKG revealed A normal sinus rhythm at a rate of 61. Head CT scan without contrast, no acute intracranial findings. Pelvis x-ray, negative study. Rib x-ray unremarkable study. No refracture. Wrist x-ray, normal right wrist radiograph. ASSESSMENT: 1. Status post mechanical fall. 2. Hypertension. 3. Atypical chest discomfort, myocardial infarction was ruled out. RECOMMENDATIONS: Continue current Cozaar at 100 mg once a day, aspirin 81 mg once a day, Norvasc at 5 mg once a day. Obtain an echocardiograph study. Abiodun Saldivar MD [facility] # [id number]
--- NOTE | 2018-04-22 15:48 | US ---
Date of service: 04/22/2018 HISTORY: abd discomfort COMPARISON: None. TECHNIQUE: Sonographic evaluation of the abdomen. FINDINGS: LIVER: Measures cm. Normal echogenicity of the liver parenchyma. No mass. No intrahepatic bile duct dilatation. GALLBLADDER: Unremarkable. No gallstones. COMMON BILE DUCT: Measures mm. No stones. No dilatation. PANCREAS: Unremarkable as visualized. No mass. No ductal dilatation. RIGHT KIDNEY: Measures cm. Normal echogenicity. No calculus, mass, or hydronephrosis. LEFT KIDNEY: Measures cm. Normal echogenicity. No calculus, mass, or hydronephrosis. SPLEEN: Normal in size and contour. No mass. AORTA: No aneurysmal dilatation. IVC: Unremarkable. OTHER FINDINGS: None. IMPRESSION: Unremarkable abdominal sonogram.
--- NOTE | 2018-04-22 16:15 | CARD ---
APPROVED REPORT Date of service: 04/22/2018 EKG Measurement Heart [id number] <Conclusion> Normal sinus rhythm Normal ECG
[2018-04-22] MEDS: Enoxaparin 40 mg Syringe SC SCH (16:47)
--- NOTE | 2018-04-22 18:15 | CARD ---
APPROVED REPORT Date of service: 04/22/2018 EXAM: Two-dimensional and M-mode echocardiogram with Doppler and color Doppler. INDICATION Chest Pain 2D DIMENSIONS Left Atrium (2D)3.5 (1.6-4.0cm)IVSd1.3 (0.7-1.1cm) LVDd4.2 (3.9-5.9cm)PWd1.2 (0.7-1.1cm) LVDs2.9 (2.5-4.0cm)FS (%) 29.9 % LVEF (%)57.5 (>50%) M-Mode DIMENSIONS Aortic Root2.60 (2.2-3.7cm)Aortic Cusp Exc.1.90 (1.5-2.0cm) Aortic Valve AoV Peak Qkwzawts251.0cm/Jay Peak GR.8mmHg Mitral Valve MV E Dksenemb18.2cm/sMV A Qoqgdfzb73.4cm/sE/A ratio0.9 TDI E/Lateral E'0.0E/Medial E'0.0 Tricuspid Valve TR Peak [id number] [id number] Peak Gr.33mmHg [id number] LEFT VENTRICLE The left ventricle is normal size. There is mild concentric left ventricular hypertrophy. The left ventricular function is normal. The left ventricular ejection fraction is within the normal range.58%. RIGHT VENTRICLE The right ventricle is normal size. The right ventricular systolic function is normal. ATRIA The left atrium size is normal. The right atrium size is normal. AORTIC VALVE The aortic valve is normal in structure. MITRAL VALVE The mitral valve is normal in structure. Mitral regurgitation is mild. TRICUSPID VALVE The tricuspid valve is normal in structure. There is mild tricuspid regurgitation. RVSP: 43mm Hg. Mild Pulmonary Hypertension. PULMONIC VALVE There is mild pulmonic valvular regurgitation. PERICARDIAL EFFUSION There is no pericardial effusion. <Conclusion> The left ventricle is normal size. LV Systolic Function Normal. Ej.Fr: 58%. There is mild concentric left ventricular hypertrophy. Mild LV Diastolic Dysfunction. The right ventricle is normal size. The right ventricular systolic function is normal. The left atrium size is normal. The right atrium size is normal. The aortic valve is normal in structure. The mitral valve is normal in structure. Mitral regurgitation is mild. The tricuspid valve is normal in structure. There is mild tricuspid regurgitation. RVSP: 43mm Hg. Mild Pulmonary Hypertension. Mild Pulmonic Regurge. There is no pericardial effusion.
[2018-04-22 19:31] VITALS: O2SAT 98
[2018-04-23 07:05] VITALS: BP 143/77; PULSE 70; RESP 18; TEMP 97.8
[2018-04-23 08:42] LABS: BASO # 0.03 K/mm3 (0.0-2.0); BASO % 0.4 % (0.0-3.0); EOS # 0.3 (0.0-0.7); LYMPH # 3.4 (1.2-3.4); LYMPH % 43.3 % (22.0-35.0); MEAN CORPUSCULAR HEMOGLOBIN 29.3 pg (25.0-35.0); MEAN CORPUSCULAR HGB CONC 31.5 g/dl (31.0-37.0); MEAN PLATELET VOLUME 9.2 fl (7.0-11.0); MONO # 0.5 (0.1-0.6); MONO % 5.8 % (1.0-6.0); RBC 4.44 10^6/uL (3.5-6.1); RED CELL DISTRIBUTION WIDTH 13.5 % (11.5-14.5); WHITE BLOOD COUNT 7.7 10^3/uL (4.5-11.0)
[2018-04-23 08:46] LABS: ALB/GLOB RATIO 1.3 (1.1-1.8); ALBUMIN 3.9 g/dL (3.0-4.8); ALT/SGPT 11 U/L (7-56); AST/SGOT 21 U/L (14-36); BLOOD UREA NITROGEN 14 mg/dL (7-21); GFR NON-AFRICAN AMERICAN > 60
[2018-04-23] MEDS: Enoxaparin 40 mg Syringe SC SCH (10:02)
--- NOTE | 2018-04-23 13:50 | CP.PCM.DIS ---
<Ilan Núñez L - Last Filed: 04/23/18 13:50> Provider - Provider Date of Admission: 04/21/18 17:26 Attending physician: Maya Pryor DO Consults: 04/21/18 18:12 Cardiology Consult Stat Comment: Consulting Provider: Abiodun Saldivar Consulting Physician: Abiodun Saldivar Reason for Consult: chest pain, ACS r/o Time Spent in preparation of Discharge (in minutes): 35 Diagnosis - Discharge Diagnosis (1) Chest discomfort Status: Acute (2) Rib pain on right side Status: Acute Hospital Course - Lab Results Lab Results: Most Recent Lab Values WBC 7.7 10^3/uL (4.5-11.0) 04/23/18 08:19 RBC 4.44 10^6/uL (3.5-6.1) 04/23/18 08:19 Hgb 13.0 g/dL (12.0-16.0) 04/23/18 08:19 Hct 41.3 % (36.0-48.0) 04/23/18 08:19 MCV 93.0 fl (80.0-105.0) 04/23/18 08:19 MCH 29.3 pg (25.0-35.0) 04/23/18 08:19 MCHC 31.5 g/dl (31.0-37.0) 04/23/18 08:19 RDW 13.5 % (11.5-14.5) 04/23/18 08:19 Plt Count 319 10^3/uL (120.0-450.0) 04/23/18 08:19 MPV 9.2 fl (7.0-11.0) 04/23/18 08:19 Neut % (Auto) 46.5 % (50.0-68.0) L 04/23/18 08:19 Lymph % (Auto) 43.3 % (22.0-35.0) H 04/23/18 08:19 Lowndes % (Auto) 5.8 % (1.0-6.0) 04/23/18 08:19 Eos % (Auto) 4.0 % (1.5-5.0) 04/23/18 08:19 Baso % (Auto) 0.4 % (0.0-3.0) 04/23/18 08:19 Lymph # (Auto) 3.4 (1.2-3.4) 04/23/18 08:19 Lowndes # (Auto) 0.5 (0.1-0.6) 04/23/18 08:19 Eos # (Auto) 0.3 (0.0-0.7) 04/23/18 08:19 Baso # (Auto) 0.03 K/mm3 (0.0-2.0) 04/23/18 08:19 Absolute Neuts (auto) 3.59 (1.4-6.5) 04/23/18 08:19 PT 11.2 SECONDS (9.4-12.5) 04/21/18 13:54 INR 1.01 04/21/18 13:54 APTT 39.4 Seconds (26.9-38.3) H 04/21/18 13:54 D-Dimer, Quantitative 244 ng/mlDDU (0-243) H 04/21/18 13:54 Sodium 138 mmol/L (132-148) 04/23/18 08:19 Potassium 4.2 mmol/L (3.6-5.0) 04/23/18 08:19 Chloride 105 mmol/L (98-107) 04/23/18 08:19 Carbon Dioxide 27 mmol/L (21-33) 04/23/18 08:19 Anion Gap 10 (10-20) 04/23/18 08:19 BUN 14 mg/dL (7-21) 04/23/18 08:19 Creatinine 0.7 mg/dl (0.7-1.2) 04/23/18 08:19 Est GFR ( Amer) > 60 04/23/18 08:19 Est GFR (Non-Af Amer) > 60 04/23/18 08:19 Random Glucose 86 mg/dL (70-110) 04/23/18 08:19 Hemoglobin A1c 6.3 % (4.2-6.5) 04/21/18 13:54 Calcium 9.0 mg/dL (8.4-10.5) 04/23/18 08:19 Phosphorus 3.5 mg/dL (2.5-4.5) 04/23/18 08:19 Magnesium 2.2 mg/dL (1.7-2.2) 04/23/18 08:19 Total Bilirubin 0.4 mg/dL (0.2-1.3) 04/23/18 08:19 AST 21 U/L (14-36) 04/23/18 08:19 ALT 11 U/L (7-56) 04/23/18 08:19 Alkaline Phosphatase 105 U/L (38-126) 04/23/18 08:19 Lactate Dehydrogenase 649 U/L (333-699) 04/21/18 13:54 Total Creatine Kinase 113 U/L (35-230) 04/21/18 13:54 Troponin I < 0.01 ng/mL 04/22/18 01:15 Total Protein 6.9 g/dL (5.8-8.3) 04/23/18 08:19 Albumin 3.9 g/dL (3.0-4.8) 04/23/18 08:19 Globulin 3.1 gm/dL 04/23/18 08:19 Albumin/Globulin Ratio 1.3 (1.1-1.8) 04/23/18 08:19 Triglycerides 234 mg/dL (35-160) H 04/21/18 13:54 Cholesterol 215 mg/dL (130-200) H 04/21/18 13:54 LDL Cholesterol Direct 104 mg/dL (0-129) 04/21/18 13:54 HDL Cholesterol 52 mg/dL (29-60) 04/21/18 13:54 Lipase 84 U/L (23-300) 04/21/18 13:54 Free T4 1.05 ng/dL (0.78-2.19) 04/21/18 13:54 TSH 3rd Generation 1.68 mIU/mL (0.46-4.68) 04/21/18 13:54 Urine Color Yellow (YELLOW) 04/21/18 14:10 Urine Appearance Clear (CLEAR) 04/21/18 14:10 Urine pH 6.0 (4.7-8.0) 04/21/18 14:10 Ur Specific Kelly 1.025 (1.005-1.035) 04/21/18 14:10 Urine Protein Negative mg/dL (<30 mg/dL) 04/21/18 14:10 Urine Glucose (UA) Negative mg/dL (NEGATIVE) 04/21/18 14:10 Urine Ketones Negative mg/dL (NEGATIVE) 04/21/18 14:10 Urine Blood Negative (NEGATIVE) 04/21/18 14:10 Urine Nitrate Negative (NEGATIVE) 04/21/18 14:10 Urine Bilirubin Negative (NEGATIVE) 04/21/18 14:10 Urine Urobilinogen 0.2 E.U./dL (<1 E.U./dL) 04/21/18 14:10 Ur Leukocyte Esterase Negative Maria Del Rosario/uL (NEGATIVE) 04/21/18 14:10 - Hospital Course Hospital Course: On admission: Patient is a 62 year old female with past medical history of hypertension presenting with chief complaint of right sided rib pain radiating to the back which began today after she slipped and fell on an icy sidewalk. Patient states that she landed on her right side and denies trauma to any other regions or loss of consciousness. Patient's fall was witnessed by a family member who subsequently brought her to the ED. Patient also admits to mild intermittent chest discomfort located on her right anterior chest wall. Pain is localized and aggravated by positional changes. Denies fevers, chills, nausea, vomiting, shortness of breath, abdominal pain, diarrhea, dysuria. During hospital stay: Patient had hip/pelvis, ribs, and wrist x-rays done which were negative for fracture. Head CT was negative for acute intracranial findings. Patient was given percocet and flexeril. Patient was evaluated by p hysical therapy. EKG showed normal sinus rhythm, troponins were negative. ECHO was done which showed EF 58%, normal LV systolic function, mild pulm hypertension. Patient also complained of abdomianl discomfort. Abdomen ultrasound was done which was unremarkable. [employer] recommendations were appreciated. Patient was optimized for discharge. Discharge Exam - Additional Findings Additional findings: - Constitutional Appears: Non-toxic, No Acute Distress - Head Exam Head Exam: ATRAUMATIC, NORMOCEPHALIC - Eye Exam Eye Exam: EOMI, Normal appearance - ENT Exam ENT Exam: Mucous Membranes Moist - Neck Exam Neck exam: Positive for: Full Rom. Negative for: Lymphadenopathy - Respiratory Exam Respiratory Exam: Chest Wall Tenderness, Clear to Auscultation Bilateral, NORMAL BREATHING PATTERN. absent: Accessory Muscle Use, Rales, Rhonchi, Wheezes, Respiratory Distress - Cardiovascular Exam Cardiovascular Exam: RRR, +S1, +S2 - GI/Abdominal Exam GI & Abdominal Exam: Normal Bowel Sounds, Soft. absent: Distended, Firm, Guarding, Rebound, Rigid, Tenderness - Extremities Exam Extremities exam: Positive for: normal capillary refill, pedal pulses present. Negative for: calf tenderness, normal inspection - Back Exam Back exam: absent: paraspinal tenderness, rash noted, vertebral tenderness - Neurological Exam Neurological exam: Alert, CN II-XII Intact, Oriented x3 - Skin Skin Exam: Dry, Intact, Normal Color, Warm Discharge Plan - Discharge Medications Prescriptions: Cyclobenzaprine [Flexeril] 5 mg PO Q8H PRN #9 tab PRN Reason: Muscle Spasm - Follow Up Plan Condition: FAIR Disposition: HOME/ ROUTINE Instructions: Muscle Spasms (DC), Chest Pain (DC), Chest Pain (GEN) Additional Instructions: Please follow up with your primary medical doctor within 3-5 days. You have been given a muscle relaxer Flexeril. Please do not drive or operate heavy machinery while taking this medication. Resume all your home medications as prescribed. Return to ED if symptoms return. Referrals: Kourtney Angulo MD [Staff Provider] - <Maya Pryor - Last Filed: 04/25/18 20:30> Provider - Provider Date of Admission: 04/21/18 17:26 Attending physician: Maya Pryor DO Consults: 04/21/18 18:12 Cardiology Consult Stat Comment: Consulting Provider: Abiodun Saldivar Consulting Physician: Abioudn Saldivar Reason for Consult: chest pain, ACS r/o Hospital Course - Lab Results Lab Results: Most Recent Lab Values WBC 7.7 10^3/uL (4.5-11.0) 04/23/18 08:19 RBC 4.44 10^6/uL (3.5-6.1) 04/23/18 08:19 Hgb 13.0 g/dL (12.0-16.0) 04/23/18 08:19 Hct 41.3 % (36.0-48.0) 04/23/18 08:19 MCV 93.0 fl (80.0-105.0) 04/23/18 08:19 MCH 29.3 pg (25.0-35.0) 04/23/18 08:19 MCHC 31.5 g/dl (31.0-37.0) 04/23/18 08:19 RDW 13.5 % (11.5-14.5) 04/23/18 08:19 Plt Count 319 10^3/uL (120.0-450.0) 04/23/18 08:19 MPV 9.2 fl (7.0-11.0) 04/23/18 08:19 Neut % (Auto) 46.5 % (50.0-68.0) L 04/23/18 08:19 Lymph % (Auto) 43.3 % (22.0-35.0) H 04/23/18 08:19 [place] % (Auto) 5.8 % (1.0-6.0) 04/23/18 08:19 Eos % (Auto) 4.0 % (1.5-5.0) 04/23/18 08:19 Baso % (Auto) 0.4 % (0.0-3.0) 04/23/18 08:19 Lymph # (Auto) 3.4 (1.2-3.4) 04/23/18 08:19 [place] # (Auto) 0.5 (0.1-0.6) 04/23/18 08:19 Eos # (Auto) 0.3 (0.0-0.7) 04/23/18 08: Baso # (Auto) 0.03 K/mm3 (0.0-2.0) 04/23/18 08:19 Absolute Neuts (auto) 3.59 (1.4-6.5) 04/23/18 08:19 PT 11.2 SECONDS (9.4-12.5) 04/21/18 13:54 INR 1.01 04/21/18 13:54 APTT 39.4 Seconds (26.9-38.3) H 04/21/18 13:54 D-Dimer, Quantitative 244 ng/mlDDU (0-243) H 04/21/18 13:54 Sodium 138 mmol/L (132-148) 04/23/18 08:19 Potassium 4.2 mmol/L (3.6-5.0) 04/23/18 08:19 Chloride 105 mmol/L (98-107) 04/23/18 08:19 Carbon Dioxide 27 mmol/L (21-33) 04/23/18 08:19 Anion Gap 10 (10-20) 04/23/18 08:19 BUN 14 mg/dL (7-21) 04/23/18 08:19 Creatinine 0.7 mg/dl (0.7-1.2) 04/23/18 08:19 Est GFR ( Amer) > 60 04/23/18 08:19 Est GFR (Non-Af Amer) > 60 04/23/18 08:19 Random Glucose 86 mg/dL (70-110) 04/23/18 08:19 Hemoglobin A1c 6.3 % (4.2-6.5) 04/21/18 13:54 Calcium 9.0 mg/dL (8.4-10.5) 04/23/18 08:19 Phosphorus 3.5 mg/dL (2.5-4.5) 04/23/18 08:19 Magnesium 2.2 mg/dL (1.7-2.2) 04/23/18 08:19 Total Bilirubin 0.4 mg/dL (0.2-1.3) 04/23/18 08:19 AST 21 U/L (14-36) 04/23/18 08:19 ALT 11 U/L (7-56) 04/23/18 08:19 Alkaline Phosphatase 105 U/L (38-126) 04/23/18 08:19 Lactate Dehydrogenase 649 U/L (333-699) 04/21/18 13:54 Total Creatine Kinase 113 U/L (35-230) 04/21/18 13:54 Troponin I < 0.01 ng/mL 04/22/18 01:15 Total Protein 6.9 g/dL (5.8-8.3) 04/23/18 08:19 Albumin 3.9 g/dL (3.0-4.8) 04/23/18 08:19 Globulin 3.1 gm/dL 04/23/18 08:19 Albumin/Globulin Ratio 1.3 (1.1-1.8) 04/23/18 08:19 Triglycerides 234 mg/dL (35-160) H 04/21/18 13:54 Cholesterol 215 mg/dL (130-200) H 04/21/18 13:54 LDL Cholesterol Direct 104 mg/dL (0-129) 04/21/18 13:54 HDL Cholesterol 52 mg/dL (29-60) 04/21/18 13:54 Lipase 84 U/L (23-300) 04/21/18 13:54 Free T4 1.05 ng/dL (0.78-2.19) 04/21/18 13:54 TSH 3rd Generation 1.68 mIU/mL (0.46-4.68) 04/21/18 13:54 Urine Color Yellow (YELLOW) 04/21/18 14:10 Urine Appearance Clear (CLEAR) 04/21/18 14:10 Urine pH 6.0 (4.7-8.0) 04/21/18 14:10 Ur Specific Kelly 1.025 (1.005-1.035) 04/21/18 14:10 Urine Protein Negative mg/dL (<30 mg/dL) 04/21/18 14:10 Urine Glucose (UA) Negative mg/dL (NEGATIVE) 04/21/18 14:10 Urine Ketones Negative mg/dL (NEGATIVE) 04/21/18 14:10 Urine Blood Negative (NEGATIVE) 04/21/18 14:10 Urine Nitrate Negative (NEGATIVE) 04/21/18 14:10 Urine Bilirubin Negative (NEGATIVE) 04/21/18 14:10 Urine Urobilinogen 0.2 E.U./dL (<1 E.U./dL) 04/21/18 14:10 Ur Leukocyte Esterase Negative Maria Del Rosario/uL (NEGATIVE) 04/21/18 14:10 Attending/Attestation - Attestation I have personally seen and examined this patient.: Yes I have fully participated in the care of the patient.: Yes I have reviewed all pertinent clinical information, including history, physical exam and plan: Yes Notes (Text): Please note this DC summary is for 04/23/18 Patient seen and examined by me with resident at approximately 9AM on 04/23/18. Case including discharge plan discussed with resident. Agree with above with following additions/corrections. Patient is a 62-year-old female past medical history significant for hypertension and previous fall that presented to the emergency room with chest pain status post a fall. Patient states that her son was at the hospital getting blood work and an MRI done. Please see H&P for full details. Patient was found to have atypical reproducible right sided chest pain, fall, gait instability, and hypertension. Troponins were within normal limits. Patient was seen by cardiology. ACS was ruled out. D-dimer was within normal limits. 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 Head CT per radiology showed no acute intracranial findings. Right hip and pelvic x-ray per radiologist showed negative study. Chest and right rib x-ray per radiologist showed unremarkable radiographs of the chest and right ribs, no right hip fracture. Right wrist x-ray showed normal right wrist radiographs. Patient was seen by physical therapy who recommended home. Patient was continued on Norvasc and Cozaar for Hypertension. Patient was initially placed on ASA for chest pain. Patient was feeling better. Patient was cleared for discharge by cardiology. Patient was discharged home. On the day of discharge, patient stated she was feeling better. Patient was ambulating. Right sided pain was much improved. Patient states it now feels sore. Patient denied chest pain and palpitations. Patient was tolerating diet. No nausea or vomiting. No abdominal pain. Patient denied headaches or dizziness. No fevers or chills. No dysuria. No diarrhea or constipation. Physical exam: General: Awake and alert lying in bed in no acute distress HEENT: Normocephalic, atraumatic. Extraocular muscles intact, pupils equal and reactive, no scleral icterus. Oropharynx is pink moist. No pharyngeal erythema or exudate appreciated. Neck is supple. Cardiovascular: Regular rhythm. Normal S1 and S2. No murmurs, rubs, or gallops appreciated Pulmonary: Normal respiratory effort. No rhonchi, rales, or wheezing appreciated. Gastrointestinal: Soft, nondistended. Nontender. Positive bowel sounds all 4 quadrants. No guarding. Musculoskeletal: Moves all extremities. No calf tenderness. No edema appreciated. Positive anterior right sided chest wall tenderness. Central nervous system: AAOx3. CN 2-12 grossly intact. 5/5 muscle strength all extremities. Dermatologic: Skin warm and dry. Please see chart for full details. Follow up instructions: Patient to follow up with PMD within 3-5 days. All instr uctions explained to the patient in detail. Patient both understands and agrees to all instructions. Written instructions also given.
== END 2018-04-23 12:49 | disposition home or self-care (01) ==
LOC: ED 12:36 → ERH 17:26 → 3RNO 19:34
PROVIDERS: ADMIT Hospitalist; ATTEND Hospitalist
DX: R07.89 Other chest pain (principal); I10 Essential (primary) hypertension; I27.20 Pulmonary hypertension, unspecified; M53.3 Sacrococcygeal disorders, not elsewhere classified; S20.219A Contusion of unspecified front wall of thorax, initial encounter; M25.531 Pain in right wrist; W00.0XXA Fall on same level due to ice and snow, initial encounter; Y92.480 Sidewalk as the place of occurrence of the external cause; Z79.899 Other long term (current) drug therapy; Z82.49 Family history of ischemic heart disease and other diseases of the circulatory system; Z91.018 Allergy to other foods; M25.551 Pain in right hip
CPT/HCPCS: 36415; 70450; 71045; 71101; 73110; 73502; 76700; 80053; 80061; 81003; 82550; 83036; 83615; 83690; 83735; 84100; 84439; 84443; 84484; 85025; 85378; 85610; 85730; 93005; 93306; 97161; 97530; 99285; G0378; G8978; G8979; G8980; J1650